=== PATIENT | male | born 2000 | race Two or more races ===

== ENCOUNTER 2023-08-05 10:34 | Emergency (ER) | payer OTHER ==
[~2023-08-05] VITALS: Ht 175.3 cm; Wt 52.2 kg
[2023-08-05 12:40] LABS: HEMATOCRIT 44.1 % (39.0-48.0); MEAN CELL VOLUME 86.2 fL (80.0-100.00); MEAN CORPUSCULAR HEMOGLOBIN 29.3 pg (27.00-32.0); PLATELET COUNT 226 K/uL (150-450); RED BLOOD COUNT 5.11 M/uL (4.00-6.00); RED CELL DISTRIBUTION WIDTH 13.8 % (11.5-14.5)
== END 2023-08-05 14:14 | disposition home or self-care (01) ==
LOC: ER 10:35 → EMR PED 11:22 → ER 11:22 → EMR PED 14:14
PROVIDERS: Emergency Medicine
DX: H60.90 Unspecified otitis externa, unspecified ear (principal); Z20.822 Contact with and (suspected) exposure to COVID-19